=== PATIENT | male | born 1960 | race Caucasian/White ===

== ENCOUNTER → 2017-02-06 | Outpatient (CLI) | payer OTHER ==
[2017-02-06] MEDS: PROPARACAINE 0.5% 15 ML OPH (11:46)
[2017-02-06] MEDS: OPHTHALMIC IRRIG SOLUTION 120 ML (11:46)
[2017-02-06] MEDS: PHENYLephrine 10% 5 ML OPH (11:46)
[2017-02-06] MEDS: TROPICAMIDE 1% 3 ML OPH (11:46)
[2017-02-06] MEDS: APRACLONIDINE 1% 0.1 ML OPH (11:47)
== END | disposition home or self-care (01) ==
LOC: RAD 11:21
DX: H26.491 Other secondary cataract, right eye (principal)
CPT/HCPCS: 66821